=== PATIENT | female | born 1985 | race African-American/Black ===

== ENCOUNTER 2020-12-05 07:55 | Inpatient (IN) | payer MEDICAID ==
[~2020-12-05] VITALS: Ht 165.1 cm; Wt 116.6 kg
[2020-12-05] MEDS: DEXT 5%/LR + PITOCIN 20UNITS/L 1,000 ML IV SCH ×3 (01:00→22:22)
[2020-12-05] MEDS: LACTATED RINGERS 1,000 ML IV SCH ×3 (11:06→22:22)
[2020-12-05 11:38] LABS: BASOPHILS % 0.3 % (0.0-2.0); EOSINOPHILS % 1.9 % (0.0-5.0); HEMATOCRIT. 33.2 % (36.0-48.0); HEMOGLOBIN. 11.1 g/dL (12.0-16.0); LYMPHOCYTES % 17.7 % (20.0-50.0); MEAN CORPUSCULAR HEMOGLOBIN 33.8 pg (28.0-32.0); MEAN CORPUSCULAR VOLUME 101.2 fL (81.0-99.0); MEAN PLATELET VOLUME 8.7 fl (7.4-10.4); MONOCYTES % 5.6 % (2.0-8.0); NEUTROPHILS % 74.5 % (40.0-76.0); PLATELET 340 x1000/uL (130-400); RED BLOOD CELL COUNT 3.28 mill/uL (4.2-5.4); RED CELL DISTRIBUTION WIDTH 14.9 % (11.6-14.6)
[2020-12-05 11:40] LABS: CLARITY URINE CLOUDY (CLEAR); COLOR URINE DARK YELLOW (YELLOW); KETONES URINE TRACE (NEGATIVE); LEUKOCYTE ESTERASE URINE 1+ (NEGATIVE); NITRITE URINE NEGATIVE (NEGATIVE); OCCULT BLOOD URINE NEGATIVE (NEGATIVE); PROTEIN URINE TRACE (NEGATIVE); SPECIFIC GRAVITY URINE 1.022 (1.005-1.030)
[2020-12-05 12:02] LABS: *BENZODIAZEPINES SCREEN URINE NEGATIVE (NEGATIVE); *COCAINE SCREEN URINE NEGATIVE (NEGATIVE); OPIATES URINE SCREEN NEGATIVE (NEGATIVE)
[2020-12-05 12:03] LABS: METHADONE URINE SCREEN NEGATIVE (NEGATIVE)
[2020-12-05 12:04] LABS: *BARBITURATES SCREEN URINE NEGATIVE (NEGATIVE); PHENCYCLIDINE URINE SCREEN NEGATIVE (NEGATIVE)
[2020-12-05 12:05] LABS: *AMPHETAMINES SCREEN URINE NEGATIVE (NEGATIVE)
[2020-12-05 12:11] LABS: CANNABINOID URINE SCREEN PRESUMTIVE POSITIVE (NEGATIVE)
[2020-12-05 14:36] LABS: HEPATITIS B SURFACE ANTIGEN NEGATIVE
[2020-12-05] MEDS ORDERED: BUTORPHANOL TARTRATE 2 MG/ML VIAL IV PRN (20:30)
[2020-12-05] MEDS ORDERED: LIDOCAINE HCL 1% 20ML VIAL (Pyxis) INJ INFIL SCH (20:30)
[2020-12-05] MEDS ORDERED: MISOPROSTOL 100MCG TABLET VG SCH (20:30)
[2020-12-05] MEDS ORDERED: NALOXONE HCL 0.4 MG/ML 1ML VIAL IM PRN (20:30)
[2020-12-05 21:17] LABS: INR 0.9; PARTIAL THROMBOPLASTIN TIME 25.4 sec (23.4-31.0); PROTHROMBIN TIME 10.1 sec (9.6-11.0)
[2020-12-05] MEDS ORDERED: FENTANYL CITRATE/PF 50MCG/ML 2ML VIAL ONE (23:07)
[2020-12-05] MEDS ORDERED: BUPIVACAINE HCL/PF 0.25% (2.5MG/ML) 10ML ONE (23:07)
[2020-12-05] MEDS ORDERED: ROPIVACAINE HCL/PF EPIDURAL 200 ML EPI ONE (23:07)
[2020-12-06] MEDS: LACTATED RINGERS 1,000 ML IV SCH (01:02)
[2020-12-06] MEDS: DEXT 5%/LR + PITOCIN 20UNITS/L 1,000 ML IV SCH ×2 (02:33→04:55)
[2020-12-06] MEDS ORDERED: BISACODYL 10MG SUPP PR PRN (04:00)
[2020-12-06] MEDS ORDERED: DIPHENHYDRAMINE 25MG CAPSULE PO PRN (04:00)
[2020-12-06] MEDS ORDERED: HEMORRHOIDAL SUPP PR PRN (04:00)
[2020-12-06] MEDS ORDERED: ACETAMINOPHEN WITH CODEINE 300/30MG TABLET PO PRN (04:00)
[2020-12-06] MEDS ORDERED: GLYCERIN/WITCH HAZEL LEAF MEDICATED PAD TOP PRN (04:00)
[2020-12-06] MEDS ORDERED: RHO(D) IMMUNE GLOBULIN 300 MCG/SYR IM PRN (04:00)
[2020-12-06] MEDS ORDERED: IBUPROFEN 400MG TABLET PO PRN (04:00)
[2020-12-06] MEDS ORDERED: DEXT 5%/LR + PITOCIN 20UNITS/L 1,000 ML IV SCH (04:00)
[2020-12-06] MEDS ORDERED: LANOLIN OINT 7GM TUBE TOP PRN (04:00)
[2020-12-06] MEDS ORDERED: BENZOCAINE/LANOLIN/ALOE VERA SPRAY TOP PRN (04:00)
[2020-12-06] MEDS: IBUPROFEN 800MG TABLET PO PRN ×3 (04:55→21:58)
[2020-12-06 05:00] VITALS: BP 147/75
[2020-12-06 07:30] VITALS: BP 124/65
[2020-12-06] MEDS ORDERED: PRENATAL VIT/FE FUMARATE/FA TABLET PO SCH (09:00)
[2020-12-06] MEDS: MAGNESIUM/ALUMINUM HYDROXIDE/SIMETHICONE 30ML UDC PO SCH ×4 (09:00→21:51)
[2020-12-06 16:40] VITALS: BP 102/69
[2020-12-06 20:00] VITALS: BP 120/74
[2020-12-06] MEDS ORDERED: DOCUSATE SODIUM 100MG CAPSULE PO SCH (21:00)
[2020-12-07 04:00] VITALS: BP 111/69
[2020-12-07] MEDS: IBUPROFEN 800MG TABLET PO PRN (05:38)
[2020-12-07] MEDS: LACTATED RINGERS 1,000 ML IV SCH (06:08)
[2020-12-07 06:43] LABS: BASOPHILS % 0.4 % (0.0-2.0); EOSINOPHILS % 2.4 % (0.0-5.0); HEMOGLOBIN. 10.1 g/dL (12.0-16.0); LYMPHOCYTES % 21.5 % (20.0-50.0); MEAN CORPUSCULAR VOLUME 101.7 fL (81.0-99.0); MEAN PLATELET VOLUME 8.5 fl (7.4-10.4); MONOCYTES % 4.4 % (2.0-8.0); NEUTROPHILS % 71.3 % (40.0-76.0); PLATELET 320 x1000/uL (130-400); RED BLOOD CELL COUNT 3.05 mill/uL (4.2-5.4); RED CELL DISTRIBUTION WIDTH 15.2 % (11.6-14.6)
[2020-12-07 07:30] VITALS: BP 115/81
[2020-12-07] MEDS ORDERED: MIDAZOLAM HCL 2 MG/2 ML VIAL ONE (12:38)
[2020-12-07] MEDS ORDERED: FENTANYL CITRATE/PF 50MCG/ML 2ML VIAL ONE ×2 (12:38→13:09)
[2020-12-07] MEDS ORDERED: LIDOCAINE HCL/PF 1% 10 MG/ML 5ML VIAL ONE (13:16)
[2020-12-07] MEDS ORDERED: PROPOFOL 200MG/20ML VIAL IV ONE ×3 (13:16→13:43)
[2020-12-07] MEDS ORDERED: KETOROLAC 60MG/2ML VIAL IM ONE (13:54)
[2020-12-07] MEDS ORDERED: IBUP-2030 PO (14:10)
[2020-12-07 16:00] VITALS: BP 126/78
[2020-12-07 19:40] VITALS: BP 120/74
[2020-12-15 04:10] LABS: CANNABINOID CONFIRMATION URINE Positive (.)
== END 2020-12-07 19:45 | disposition home or self-care (01) | DRG 541 ==
LOC: 8 EST LDRP 07:55 → OBSVTOIN 07:55 → 8 EST A/PP 12-06 04:56
PROVIDERS: ADMIT Obstetrics & Gynecology; ATTEND Obstetrics & Gynecology
PROC: 10E0XZZ Delivery of Products of Conception, External Approach (ICD-10-PCS; principal; 2020-12-06)
PROC: 3E0R3BZ Introduction of Anesthetic Agent into Spinal Canal, Percutaneous Approach (ICD-10-PCS; 2020-12-06)
PROC: 00HU33Z Insertion of Infusion Device into Spinal Canal, Percutaneous Approach (ICD-10-PCS; 2020-12-06)
PROC: 0UB70ZZ Excision of Bilateral Fallopian Tubes, Open Approach (ICD-10-PCS; 2020-12-07)
DX: O99.214 Obesity complicating childbirth (principal); Z37.0 Single live birth; E66.01 Morbid (severe) obesity due to excess calories; Z20.822 Contact with and (suspected) exposure to COVID-19; Z3A.39 39 weeks gestation of pregnancy; Z30.2 Encounter for sterilization
CPT/HCPCS: 36415; 76805; 76818; 80305; 80349; 81003; 85025; 86592; 86703; 86762; 86850; 86900; 87340; 87426; 88302; 99281; J0595; J1885; J2250; J2590; J2704; J2795; J3010; J3490; J7120

== ENCOUNTER 2024-08-18 12:02 | Emergency (ER) | payer MEDICAID ==
[~2024-08-18] VITALS: Ht 165.1 cm; Wt 102.0 kg
[~2024-08-18 12:02] MED LIST: IBUP-2030 PO
[2024-08-18 12:04] VITALS: BP 134/103; PULSE 85; RESP 14; TEMP 36.9; O2SAT 99
[2024-08-18] MEDS: DEXAMETHASONE 10 MG/ML VIAL IM ONE (13:21)
[2024-08-18] MEDS: ACETAMINOPHEN 325MG TABLET PO ONE (13:21)
[2024-08-18] MEDS ORDERED: ACET-2708 MT (13:22)
[2024-08-18] MEDS ORDERED: PENI500T MT (13:22)
[2024-08-18] MEDS ORDERED: BENZ1LOZ73 MT (13:22)
== END 2024-08-18 13:39 | disposition home or self-care (01) ==
LOC: ER 12:02
DX: J02.9 Acute pharyngitis, unspecified (principal); J45.909 Unspecified asthma, uncomplicated; Z79.899 Other long term (current) drug therapy
CPT/HCPCS: 99283; J1100